=== PATIENT | male | born 1945 | race Caucasian/White ===

== ENCOUNTER 2023-03-02 04:42 | Emergency (ER) | payer MEDICARE, SELFPAY ==
[2023-03-02 04:52] VITALS: BP 134/78; PULSE 85; RESP 16; TEMP 36.8; O2SAT 94
--- NOTE | 2023-03-02 05:09 | ED_ITS ---
HPI - Fall General Chief Complaint: Fall Stated Complaint: FALL Time Seen by Provider: 03/02/23 05:07 Mode of arrival: ambulance History of Present Illness HPI Narrative: [facility]P fell onto his knees. Transferred here for evaluation. He denies injury elsewhere other than his knees. Denies striking his head. complaint: Reports fall Related Data Home Medications Medication Instructions Recorded Confirmed carbidopa 25 mg-levodopa 100 mg tab 03/02/23 tablet carbidopa ER 25 mg-levodopa 100 mg tab PO 03/02/23 tablet,extended release furosemide 20 mg tablet mg 03/02/23 metolazone 2.5 mg tablet mg 03/02/23 omeprazole 20 mg capsule,delayed mg 03/02/23 release sertraline 25 mg tablet mg 03/02/23 spironolactone 25 mg tablet mg 03/02/23 Allergies Allergy/AdvReac Type Severity Reaction Status Date / Time sulfamethoxazole Allergy Verified 03/02/23 04:59 [From Sulfamethoxazole-Trimethoprim] trimethoprim Allergy Verified 03/02/23 04:59 [From Sulfamethoxazole-Trimethoprim] Review of Systems ROS Status of ROS 10 or more systems reviewed and unremarkable except as noted in history and below Exam Constitutional Vital Signs, click to edit/add: Last Vital Signs Temp 98.3 F 03/02/23 04:52 Pulse 85 03/02/23 04:52 Resp 16 03/02/23 04:52 BP 134/78 H 03/02/23 04:52 Pulse Ox 94 L 03/02/23 04:52 O2 Del Method Nasal Cannula 03/02/23 04:52 O2 Flow Rate 4 03/02/23 04:52 Common normals: no apparent distress, oriented x3 and alert HENMT Common normals: normocephalic and head/scalp atraumatic Eye Common normals: EOMs intact bilaterally and conjunctivae normal Respiratory Common normals: normal respiratory effort, no retractions, no use of accessory muscles and clear to auscultation bilaterally Cardio Common normals: regular rate, regular rhythm, S1 normal heart sound and S2 normal heart sound GI Common normals: Normal to inspection, nondistended, normoactive bowel sounds present Extremity Other: abrasions bilt knees. R>L chronic edema of his lower ext and feet Neuro Common normals: oriented x3, moves all extremities and no focal motor deficits Psych Appearance: grossly normal Course Vital Signs Vital signs: Vital Signs Temperature 98.3 F 03/02/23 04:52 Pulse Rate 85 03/02/23 04:52 Respiratory Rate 16 03/02/23 04:52 Blood Pressure 134/78 H 03/02/23 04:52 Pulse Oximetry 94 L 03/02/23 04:52 Oxygen Delivery Method Nasal Cannula 03/02/23 04:52 Oxygen Delivery Flow Rate 4 03/02/23 04:52 Temperature 98.3 F 03/02/23 04:52 Pulse Rate 85 03/02/23 04:52 Respiratory Rate 16 03/02/23 04:52 Blood Pressure 134/78 H 03/02/23 04:52 Pulse Oximetry 94 L 03/02/23 04:52 Oxygen Delivery Method Nasal Cannula 03/02/23 04:52 Oxygen Delivery Flow Rate 4 03/02/23 04:52 MDM - Fall MDM Narrative Medical decision making narrative: [facility] Exam with abrasions on his knees. Xrays neg for aucte findings. Patient informed of the above. will discharge home to follow up with his physician Discharge Plan Discharge Chief Complaint: Fall Clinical Impression: Abrasion of both knees Prescriptions / Home Meds: No Action metolazone 2.5 mg tablet carbidopa-levodopa 25-100 mg tablet extended release PO spironolactone 25 mg tablet sertraline 25 mg tablet omeprazole 20 mg capsule,delayed release(DR/EC) furosemide 20 mg tablet carbidopa-levodopa 25-100 mg tablet Instructions: Abrasion (ED) Additional Instructions: follow up with your family doctor tomorrow or early next weeek Stand Alone Forms: Portal Instructions Referrals: CARMENCITA NESBITT DO [Primary Care Provider] - 1 week
--- NOTE | 2023-03-02 05:11 | XR_ITS ---
[address] [address] Patient Name: BARBIE MUÑOZ MRN: [id number] date: 1945 Sex: M Assigned Patient Location: ER Current Patient Location: .MAIN Accession/Order Number: [id number] Exam Date: 03/02/2023 05:40 Report Date: 03/02/2023 06:23 At the request of: BARRON CHAVIS Procedure: XR knee RIGOBERTO 4V EXAMINATION: XR knee RIGOBERTO 4V HISTORY: fall , acute bilateral knee pain COMPARISON: No relevant comparison available. FINDINGS: RIGHT FINDINGS: BONES: Moderate-marked narrowing of the medial joint space. Small periarticular degenerative osteophytes involving all 3 compartments. SOFT TISSUES: No visible soft tissue swelling. OTHER: Negative. LEFT FINDINGS: BONES: 2 lag screws within distal femoral metaphysis with the head of the proximal screw protruding 5 mm from the cortical surface. Moderate-marked narrowing of the medial and lateral joint spaces. Small periarticular degenerative osteophytes involving all 3 compartments. SOFT TISSUES: No visible soft tissue swelling. OTHER: Small joint effusion. XR/XR knee RIGOBERTO 4V IMPRESSION: RIGHT CONCLUSION: No acute bone abnormality. Moderate marked degenerative joint disease. LEFT CONCLUSION: No acute bone abnormality. Moderate-marked degenerative joint disease. Electronically authenticated by: JOSEPHINE HAWKINS Date: 03/02/2023 06:23
[2023-03-02 08:19] VITALS: BP 140/82; PULSE 79; RESP 14; O2SAT 97
== END 2023-03-02 08:31 | disposition home or self-care (01) ==
PROVIDERS: Emergency Provider Internal Medicine; PCP Family Medicine
DX: S80.212A Abrasion, left knee, initial encounter (principal); S80.211A Abrasion, right knee, initial encounter; W19.XXXA Unspecified fall, initial encounter; Z79.899 Other long term (current) drug therapy
CPT/HCPCS: 73564; 99283